=== PATIENT | male | born 1985 | race Two or more races ===

== ENCOUNTER 2023-12-26 13:36 | Emergency (ER) | payer OTHER ==
[~2023-12-26] VITALS: Ht 175.3 cm; Wt 87.1 kg
[2023-12-26] MEDS ORDERED: LIPITOR20 MG PO (14:25)
[2023-12-26] MEDS ORDERED: DEXAMETHASONE SODIUM PHOSPHATE 4 MG/ML VIAL IM STA (14:56)
[2023-12-26] MEDS ORDERED: DEXAMETHASONE SODIUM PHOSPHATE 4 MG/ML VIAL ONE (15:05)
[2023-12-26 16:10] LABS: HEMATOCRIT 40.5 % (39.0-48.0); HEMOGLOBIN 13.7 g/dL (13-16.00); MEAN CORPUSCULAR HEMOGLOBIN 29.4 pg (27.00-32.0); MEAN CORPUSCULAR HGB CONC 33.8 g/dl (32.0-36.0); PLATELET COUNT 284 K/uL (150-450); RED BLOOD COUNT 4.65 M/uL (4.00-6.00); RED CELL DISTRIBUTION WIDTH 14.3 % (11.5-14.5)
[2023-12-26 16:56] LABS: URINE APPEARANCE Clear; URINE BILIRRUBIN Negative (NEGATIVE); URINE BLOOD Negative; URINE COLOR Yellow; URINE GLUCOSE Negative (NEGATIVE); URINE LEUKOCYTE Negative; URINE NITRATE Negative; URINE PROTEIN Negative (NEGATIVE); URINE UROBILINOGEN 0.2 E.U./dl
[2023-12-26 16:58] LABS: BILIRUBIN TOTAL 0.32 mg/dL (0.3-1.2); CALCIUM 9.2 mg/dL (8.5-10.1); CREATININE SERUM 0.96 mg/dL (0.70-1.30); GFR 88.13; GLOBULINA 4.2 G/DL (2.4-3.5); POTASSIUM 4.21 mEq/L (3.5-5.1); TOTAL PROTEIN 8.2 gm/dL (6.4-8.2); TSH 0.643 uIU/mL (0.358-3.74)
[2023-12-26 17:00] LABS: URINE EPITHELIAL CELLS 1.5 uL (0.0-38.8)
[2023-12-26 17:06] LABS: URINE RBC 1.2 uL (0.0-20.8); URINE WBC 1.2 uL (0.0-23.2)
== END 2023-12-26 21:53 | disposition home or self-care (01) ==
LOC: ER 13:37
PROVIDERS: General Practice
DX: R25.2 Cramp and spasm (principal)

== ENCOUNTER 2024-01-14 10:23 | Emergency (ER) | payer OTHER ==
[~2024-01-14] VITALS: Ht 175.3 cm; Wt 83.5 kg
[~2024-01-14 10:23] MED LIST: LIPITOR20 MG PO
[2024-01-14] MEDS ORDERED: ACETAMINOPHEN 325 MG TABLET PO ONE (11:30)
[2024-01-14 11:51] LABS: HEMATOCRIT 40.9 % (39.0-48.0); MEAN CELL VOLUME 85.9 fL (80.0-100.00); MEAN CORPUSCULAR HEMOGLOBIN 29.4 pg (27.00-32.0); MEAN CORPUSCULAR HGB CONC 34.2 g/dl (32.0-36.0); PLATELET COUNT 261 K/uL (150-450); RED BLOOD COUNT 4.76 M/uL (4.00-6.00); RED CELL DISTRIBUTION WIDTH 14.1 % (11.5-14.5)
[2024-01-14 11:53] LABS: URINE APPEARANCE Clear; URINE BILIRRUBIN Negative (NEGATIVE); URINE BLOOD Negative; URINE COLOR Yellow; URINE GLUCOSE Negative (NEGATIVE); URINE KETONE Negative (NEGATIVE); URINE LEUKOCYTE Negative; URINE NITRATE Negative; URINE PROTEIN Negative (NEGATIVE); URINE UROBILINOGEN 0.2 E.U./dl
[2024-01-14 11:57] LABS: URINE BACTERIA 13.8 uL (0.0-1933); URINE EPITHELIAL CELLS 4.1 uL (0.0-38.8); URINE RBC 3.6 uL (0.0-20.8); URINE WBC 2.6 uL (0.0-23.2)
[2024-01-14 11:59] LABS: URINE CAST 0.15 uL (0.0-1.40)
[2024-01-14 12:28] LABS: CALCIUM 9.8 mg/dL (8.5-10.1); CREATININE SERUM 0.95 mg/dL (0.70-1.30); GFR 89.21; POTASSIUM 4.46 mEq/L (3.5-5.1)
== END 2024-01-14 15:19 | disposition home or self-care (01) ==
LOC: ER 10:23
PROVIDERS: Emergency Medicine
DX: R10.9 Unspecified abdominal pain (principal)

== ENCOUNTER 2024-05-06 00:07 | Emergency (ER) | payer OTHER ==
[~2024-05-06] VITALS: Ht 175.3 cm; Wt 80.3 kg
[2024-05-06 00:28] VITALS: BP 124/74; O2SAT 99
== END 2024-05-06 03:07 ==
LOC: ER 00:09
DX: R00.2 Palpitations (principal)